=== PATIENT | male | born 1975 | race Two or more races ===

== ENCOUNTER 2016-05-31 13:25 | Inpatient (IN) | payer MEDICARE, OTHER ==
[~2016-05-31] VITALS: Ht 177.8 cm; Wt 79.6 kg
[2016-05-31 14:16] LABS: BASOPHIL % 0.5 % (0-2); PLATELET COUNT 205 x10^3mcL (130-400); RED CELL DISTRIBUTION WIDTH 13.4 % (11.5-14.5)
--- NOTE | 2016-05-31 14:33 | NUR ---
PT PRESENTS TO THE ED WITH THE COMPLAINT OF INTERMITTENT RIGHT UPPER CHEST PAIN X 1 MONTH. THE PT HAS ALREADY BEEN SEEN AT OTHER ERS FOR THE SAME THING WITH THE DX OF ANXIETY. PT REPORTS THE PAIN PRESSURE AND NON-RADIATING. PT DENIES ANY STRENUOUS ACTIVITY WHICH COULD HAVE CAUSED THE PAIN. MSE COMPLETED BY DR. LOCK
--- NOTE | 2016-05-31 14:35 | NUR ---
PT TAKEN TO CT VIA WHEELCHAIR AND IN A STABLE CONDITION
[2016-05-31 14:39] LABS: T3 TOTAL 1.03 ng/mL
[2016-05-31 14:42] LABS: microscopic required? NO
[2016-05-31 14:58] LABS: CALCIUM 8.5 mg/dL (8.5-10.1); CARBON DIOXIDE 29.5 mmol/L (21-32); CHLORIDE SERUM 105 mmol/L (98-107); CREATININE SERUM 1.2 mg/dL (0.7-1.3); GFR1 > 60 mL/min; GLUCOSE SERUM 170 mg/dL (74-106); POTASSIUM SERUM 4.1 mmol/L (3.5-5.1); SODIUM SERUM 139 mmol/L (136-145)
--- NOTE | 2016-05-31 14:58 | NUR ---
RECEIVED CALL FROM FEMALE NAMED CHI CALEB WHO STATED SHE IS PT GIRLFRIEND AND WOULD LIKE TO RECEIVE UPDATE ON PT. FEMALE WAS INSTRUCTED THAT INFORMATION IS NOT PROVIDED OVER THE PHONE AND/OR WITHOUT CONSENT FROM PT. FEMALE IS REQUESTING THAT PT BE NOTIFIED THAT SHE HAD CALLED AND IS WANTING UPDATE. CALL BACK NUMBER [phone] PRIMARY RN ARAMIS WAS MADE AWARE.
[2016-05-31 15:00] LABS: UA SPECIFIC GRAVITY 1.025 (1.005-1.035); urine erythrocyte NEGATIVE (NEGATIVE)
--- NOTE | 2016-05-31 15:06 | NUR ---
PT RETURNED FROM CT SCANNER. PT PLACED BACK CARDIAC MONTIORS. HIVES NOTED TO PT FACE. NO HIVES NOTED TO BODY. PT DENIES ANY ITCHING, BURNING OR SOB. DR. LOCK NOTED. PT MEDICATED ORDERED. FAMILY AT BEDSIDE. CONTINUE TO MONITOR.
[2016-05-31 15:11] LABS: ALBUMIN 3.7 g/dL (3.4-5.0); ALKALINE PHOSPHATASE 103 U/L (46-116); ALT/SGPT 33 U/L (16-63); AST/SGOT 19 U/L (15-37); BILIRUBIN TOTAL 0.4 mg/dL (0.20-1.00); CHOLESTEROL 183 mg/dL (<200); CHOLESTEROL/HDL RATIO 4.6; HDL CHOLESTEROL 40 mg/dL (40-60); LIPASE 161 IU/L (73-393); TOTAL PROTEIN, SERUM 7.4 g/dL (6.4-8.2)
[2016-05-31 15:13] LABS: TRIGLYCERIDES 221 mg/dL (<150)
[2016-05-31] MEDS ORDERED: DICLOFENAC SODI75 MG PO (16:38)
--- NOTE | 2016-05-31 17:05 | NUR ---
PT DENIES ANY CHEST PAIN AT THIS TIME
[2016-05-31 17:10] LABS: FREE T4 0.89 ng/dL (0.76-1.46); FREE THYROXINE INDEX 2.4 ug/dL (1.4-4.5); T4(THYROXINE) 7.4 ug/dL (4.7-13.3)
--- NOTE | 2016-05-31 18:14 | NUR ---
PT REMAINS RESTING IN A POSITION OF COMFORT IN LOW POSITIONED BED WITH SIDE RAILS UP X 2 AND CALL LIGHT WITHIN REACH.
--- NOTE | 2016-05-31 18:36 | NUR ---
REPORT CALLED TO [facility] ON TELE UNIT AT THIS TIME
[2016-05-31 19:04] VITALS: BP 104/62
--- NOTE | 2016-05-31 19:09 | NUR ---
RECIVED PT FROM ED VIA HECTOR. ORIENTED PT TO ROOM AND SURROUNDINGS. IV NOTED TO RAC PATENT AND INTACT. TELE 29 PLACED ON PT READING NSR. INSTRUCTED PT ON THE USE OF CALL LIGHT FOR ASSISTANCE. ENDORSED PT TO PRIMARY NURSE NATTY
--- NOTE | 2016-05-31 19:22 | NUR ---
I HAVE REVIEWED THE DATA COLLECTION BY MOY (NAME):NATTY MEDINA ENTERED ON (DATE/TIME):05/31/161920 I CONCUR WITH THE DATA AND ANY EXCEPTIONS OR COMMENTS ARE LISTED BELOW:
--- NOTE | 2016-05-31 19:50 | NUR ---
RECEIVED Pt AAOX3 CALM AND COOPERATIVE WITH CARE. DENIES ANY CHEST PAIN OR SOB. LUNG SOUNDS ARE CTA BILATERALLY. ACTIVE BOWEL SOUNDS X4 QUADS. DENIES ANY N/V/D. VOIDS FREELY. IV TO RFA AND LFA ARE PATENT. SKIN IS INTACT. RADIAL AND PEDAL PULSES ARE PRESENT. MOVES ALL EXTREMITIES, NO EDEMA NOTED. RE-ORIENTED TO ROOM AND CALL LIGHT SYSTEM WITHIN EASY REACH. WILL CONTINUE TO MONITOR.
[2016-05-31 19:55] LABS: AMPHETAMINE QUAL UR NONE DETECTED (NEG <=1000)
[2016-05-31 20:48] VITALS: BP 103/64
[2016-06-01] VITALS (7 sets, daily range): BP systolic 99–113; BP diastolic 50–67
--- NOTE | 2016-06-01 00:18 | NUR ---
C/O STABBING NON-RADIATING CHEST PAIN AT 5/10 AND FEELING RESTLESS. MEDICATED WITH NORCO AND ATIVAN PO. CALL LIGHT WITHIN REACH. WILL CONTINUE TO MONITOR.
--- NOTE | 2016-06-01 02:45 | NUR ---
PT MEDICATED WITH ZOFRAN IV FOR NAUSEA, NO VOMIT NOTED. WILL CONTINUE TO MONITOR.
--- NOTE | 2016-06-01 05:39 | NUR ---
Pt MEDICATED X1 FOR RIGHT SIDED CHEST PAIN AND NAUSEA. SLEPT ON AND OFF. VOIDS FREELY. CONTINUES TO REST QUIETLY. SAFETY AND COMFORT MEASURES REMAIN IN PLACE. WILL CONTINUE TO MONITOR.
[2016-06-01 06:12] LABS: BASOPHIL % 0.1 % (0-2); PLATELET COUNT 209 x10^3mcL (130-400); RED CELL DISTRIBUTION WIDTH 13.4 % (11.5-14.5)
[2016-06-01 07:17] LABS: CALCIUM 8.1 mg/dL (8.5-10.1); CARBON DIOXIDE 24.1 mmol/L (21-32); CHLORIDE SERUM 107 mmol/L (98-107); CREATININE SERUM 1.2 mg/dL (0.7-1.3); GFR1 > 60 mL/min; GLUCOSE SERUM 145 mg/dL (74-106); MAGNESIUM 1.7 mg/dL (1.8-2.4); PHOSPHOROUS 3.4 mg/dL (2.5-4.9); POTASSIUM SERUM 4.5 mmol/L (3.5-5.1); SODIUM SERUM 141 mmol/L (136-145)
--- NOTE | 2016-06-01 08:15 | NUR ---
RECEIVED PATIENT AAOX4, ABLE TO COMMUNICATE AND FOLLOW COMMANDS BUT SLOW TO ANSWER, NO DISTRESS NOTED, TELE# [address] AND DENIES CHEST PAIN AT THIS MOMENT. PALPABLE PUSLES TO BUE/BLE AND SCDS IN PLACE. ON ROOM AIR, DENIES SOB, AND RESPIRAITONS EVEN AND UNLABORED. DENIES N/V/D. VOID FREELY WITH BALANCED GAIT TO RESTROOM. IV TO RFA CDI. BED TO LOWEST POSITION, SIDE RAILS UPX2, CALL LIGHT AND BELONGINGS WITHIN REACH, AND WILL CONTINUE TO MONITOR.
--- NOTE | 2016-06-01 13:12 | NUR ---
MADE AWARE OF PATIENT HAVING CHEST PAIN 12/03 GAVE MORPHINE SULFATE 2MG IVP Q3H PRN FOR PAIN, SAID HE WILL ORDER ATIVAN PRN AND GIVE NEXT TIME PATIENT HAVING CHEST PAIN, WILL FOLLOW ORDERS, ALSO MADE AWARE PATIENTS MOTHER WOULD LIKE AN UPDATE, AND WILL CONTINUE TO MONITOR
--- NOTE | 2016-06-01 19:20 | NUR ---
PATIENT SITTING UP IN BED AAOX4, NO DISTRESS NOTED, PATIENTS SIGNIFICANT OTHER AT BEDSIDE, DENIES CHEST PAIN AT THIS MOMENT, CALL LIGHT AND BELONGINGS WITHIN REACH, AND ENDORSE TO NIGHT NURSE.
--- NOTE | 2016-06-01 19:40 | NUR ---
PT ALERT AND AWAKE. GIRLFRIEND AT BEDSIDE. AOX4. VERBAL WITH CLEAR SPEECH. DENIES ANY SOB. LUNGS CLEAR BILATERALLY. DENIES ANY CHEST PAIN. BP 99/50, HR 69. DENIES ANY HEADACHE OR DIZZINESS. ABD SOFT AND FLAT. BOWEL SOUNDS ACTIVE. LAST BM 05/31/16. IV TO RIGHT AC AND LEFT FA PATENT AND INTACT. IV INFUSING WELL TO RIGHT AC. NO S/S OF INFECTION NOTED. NO EDEMA NOTED. PULSES PALPABLE. CALM AND COOPERATIVE AT THIS TIME. NO S/S OF DISTRESS OR DISCOMFORT NOTED. CALL LIGHT WITHIN REACH. WILL CONTINUE TO MONITOR.
--- NOTE | 2016-06-01 23:00 | NUR ---
PT RESTING IN BED WITH EYES CLOSED. BREATHING EQUAL AND UNLABORED. NO S/S OF RESPIRATORY DISTRESS NOTED. IV PATENT AND INFUSING WELL. NO S/S OF DISTRESS OR DISCOMFORT NOTED. CALL LIGHT WITHIN REACH. WILL CONTINUE TO MONITOR.
--- NOTE | 2016-06-02 03:49 | NUR ---
PT RESTING IN BED WITH EYES CLOSED. BREATHING EQUAL AND UNLABORED. NO S/S OF RESPIRATORY DISTRESS NOTED. IV PATENT AND INFUSING WELL. NO S/S OF DISTRESS OR DISCOMFORT NOTED. RESTING COMFORTABLY WITH RELAXED FACIAL FEATURES. CALL LIGHT WITHIN REACH. WILL CONTINUE TO MONITOR.
[2016-06-02 05:28] VITALS: BP 112/69
--- NOTE | 2016-06-02 05:50 | NUR ---
PT RESTING WITH EYES CLOSED. EASILY AROUSED WHEN NAME CALLED. BREATHING EQUAL AND UNLABORED. PT SLEPT WELL THROUGH THE NIGHT. NO COMPLAINTS. IV INFUSING WELL. RECEIVED ROUTINE MEDICATIONS AND SWALLOWED WITHOUT DIFFICULTY. DENIES ANY PAIN AT THIS TIME. NO FACIAL GRIMACING NOTED. CALL LIGHT WITHIN REACH. WILL CONTINUE TO MONITOR.
[2016-06-02 06:25] LABS: BASOPHIL % 0.4 % (0-2); PLATELET COUNT 176 x10^3mcL (130-400)
[2016-06-02 07:05] LABS: CALCIUM 7.7 mg/dL (8.5-10.1); CARBON DIOXIDE 28.4 mmol/L (21-32); CHLORIDE SERUM 108 mmol/L (98-107); CREATININE SERUM 1.2 mg/dL (0.7-1.3); GFR1 > 60 mL/min; GLUCOSE SERUM 94 mg/dL (74-106); MAGNESIUM 1.9 mg/dL (1.8-2.4); PHOSPHOROUS 3.3 mg/dL (2.5-4.9); POTASSIUM SERUM 4.2 mmol/L (3.5-5.1); SODIUM SERUM 143 mmol/L (136-145)
--- NOTE | 2016-06-02 08:45 | NUR ---
PT RECEIVED DURING CHANGE OF SHIFT, A/OX4, TELE 29, NSR, DENIES CHEST PAIN, PULSES PRESENT NO EDEMA NOTED, LUNGS CTA ON RA, BOWEL SOUNDS ACTIVE, PT VOIDS UTILIZING URINAL, AMBULATORY, SKIN WARM DRY INTACT, DENIES ALL PAIN, IV TO RAC INFUSING NS AT 90 ML/HR, CALM AND COOPERATIVE, CALL LIGHT WITHIN REACH, WILL CONTINUE TO MONITOR.
[2016-06-02] MEDS ORDERED: ZIT250 PO (08:52)
[2016-06-02 09:21] VITALS: BP 112/69
--- NOTE | 2016-06-02 09:30 | NUR ---
PT DENIES SOB, C/O CHEST PAIN 04/05, CALL LIGHT WITHIN REACH, WILL CONTINUE TO MONITOR.
--- NOTE | 2016-06-02 10:27 | NUR ---
PT DENIES SOB, PT C/O CHEST PAIN 04/05, MOTHER AT BEDSIDE, CALL LIGHT WITHIN REACH, WILL CONTINUE TO MONITOR.
[2016-06-02 10:32] VITALS: BP 114/66
--- NOTE | 2016-06-02 10:53 | NUR ---
PT AND MOTHER RECEIVED DISCHARGE INSTRUCTIONS, VERBALIZED UNDERSTANDING, ALL QUESTIONS ANSWERED, IV DC'D CATHTER INTACT, TELE DC'D, ARMBANDS CUT OFF, PT BEING ESCORTED DOWNSTAIRS BY THEO LOCK.
== END 2016-06-02 10:50 | disposition home or self-care (01) | DRG 205 ==
LOC: ED 13:25 → DU 16:29
PROVIDERS: Family Medicine; Specialist; ADMIT Family Medicine
DX: M94.0 Chondrocostal junction syndrome [Tietze] (principal); J18.9 Pneumonia, unspecified organism; K21.9 Gastro-esophageal reflux disease without esophagitis; E83.42 Hypomagnesemia; E04.2 Nontoxic multinodular goiter; E78.5 Hyperlipidemia, unspecified; E78.1 Pure hyperglyceridemia; Z68.25 Body mass index [BMI] 25.0-25.9, adult
CPT/HCPCS: 80307; 83880; 84439; J0696; J1200; J1885; J2060; J2270; J2405; J2930; J7030; Q0092; Q9967

== ENCOUNTER 2018-09-21 14:19 | Emergency (ER) | payer BC ==
[~2018-09-21] VITALS: Ht 160 cm; Wt 83.5 kg
[~2018-09-21 14:19] MED LIST: DICLOFENAC SODI75 MG PO; ZIT250 PO
[2018-09-21 16:25] VITALS: BP 124/98
== END 2018-09-21 16:25 | disposition home or self-care (01) ==
LOC: ED 14:19
DX: M25.511 Pain in right shoulder (principal); Z91.041 Radiographic dye allergy status
CPT/HCPCS: J1885